=== PATIENT | female | born 2005 | race Caucasian/White ===

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

== ENCOUNTER 2024-01-03 02:58 | Emergency (ER) | payer OTHER, SELFPAY ==
[2024-01-03 02:59] VITALS: BP 122/78; PULSE 101; RESP 18; TEMP 36.8; O2SAT 97; BMI 33.1
--- NOTE | 2024-01-03 03:14 | PC.NURSE ---
pt from home, a&ox4, respirations even and unlabored. pt reports x2 weeks of nausea after eating, pt reports often times she eats and throws up almost immediately aftre. pt reports she has had a recent change in her meds and reports she is unsure if this is the cause. pt reports her last BM was 4 days ago and was hard. at this time pt also reporting SI, pt did not disclose plan at this time. pt reports she is in need of a new psychiatrist. 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
--- NOTE | 2024-01-03 03:17 | PC.NURSE ---
pt noted to have multiple facial piercings, pt unable to remove these. security and Charley chargemaster analyst aware.
--- NOTE | 2024-01-03 03:42 | PC.NURSE ---
belongings placed on shelf 2 in [facility].
[2024-01-03 03:48] LABS: Basophils Absolute Auto 0.1 X10*3/uL (0.0-0.2); Basophils Percent Auto 0.8 % (0-2); Hematocrit 38.3 % (37.0-47.0); Hemoglobin 12.9 g/dl (12.0-16.0); Imm Gran Abs Auto 0.03 X10*3/uL (0.00-0.03); Imm Gran Pct Auto 0.4 % (0.0-0.4); Lymphocytes Absolute Auto 1.5 X10*3/uL (1.2-4.9); Lymphocytes Percent Auto 19.1 % (20-40); MANUAL DIFF FLAG NO; Mean Corpuscular HGB Conc 33.7 g/dl (31.0-35.0); Mean Corpuscular Hemoglobin 26.6 pg (27.0-33.0); Mean Platelet Volume 10.2 fL (9.4-12.3); Monocytes Absolute Auto 0.4 X10*3/uL (0.1-1.2); Neutrophils Absolute Auto 5.7 x10*3/uL (2.0-8.3); Neutrophils Percent Auto 74.7 % (45-73); Platelet Count 238 X10*3/uL (160-400); Red Blood Count 4.85 X10*6/uL (4.20-5.50); White Blood Count 7.6 X10*3/uL (4.8-10.8)
[2024-01-03 03:49] LABS: Appearance Urine Turbid; Color Urine Dark Yellow; Glucose Urine UA Negative (Negative); Leukocyte Esterase Urine Moderate (2+) (Negative); Nitrite Urine Negative (Negative); Specific Gravity - Urine >= 1.030 (1.005-1.025); UMIC TRIGGER UACC YES; Urine Blood Negative (Negative); Urine Ketones Trace mg/dL (Negative); Urine Protein 30 (1+) mg/dL (Neg-Trace)
[2024-01-03 04:00] LABS: Bacteria Urine 4+ (None Seen); RBC Urine 0-2 /HPF (0-2); UACC Culture Trigger YES
[2024-01-03 04:03] LABS: Amphetamine Screen Urine Not Detected (Not Detect); Barbiturates, Urine Not Detected (Not Detect); Benzodiazepines Screen Urine Not Detected (Not Detect); Buprenorphine Scr Not Detected (Not Detect); Cannabinoid Screen Urine Not Detected (Not Detect); Cocaine Screen Urine Not Detected (Not Detect); Fentanyl, urine Not Detected (Not Detect); Methadone Screen, Urine Not Detected (Not Detect); Opiate Screen Urine Not Detected (Not Detect); Oxycodone Screen Urine Not Detected (Not Detect); Phencyclidine Screen Urine Not Detected (Not Detect)
[2024-01-03 04:09] LABS: Alanine Aminotransferase 20 U/L (0-31); Albumin Level 4.6 g/dL (3.5-5.0); Alkaline Phosphatase 137 U/L (39-117); Anion Gap 16 (12-20); Aspartate Amino Transferase 26 U/L (5-31); Bilirubin Total 0.4 mg/dL (0.0-1.0); Blood Urea Nitrogen 6 mg/dL (9-16); Calcium 9.9 mg/dL (8.4-10.2); Carbon Dioxide 20 mmol/L (22-29); Chloride 111 mmol/L (96-108); Creatinine Clr Calc Pharmacy 107.9; Estimated Glomerular Filt Rate > 60; Ethanol < 10 mg/dL; Glucose Random 108 mg/dL (60-115); Potassium 3.8 mmol/L (3.3-5.1); Sodium 143 mmol/L (135-145); Total Protein 7.4 g/dL (6.5-8.0)
--- NOTE | 2024-01-03 04:45 | ED_ITS ---
HPI - Psych General Chief Complaint: Abdominal Pain Stated Complaint: vomiting, constipated Time Seen by Provider: 01/03/24 04:24 Source: patient Mode of arrival: ambulatory Limitations: no limitations History of Present Illness ED Provider: aron CARR Narrative: Patient's history of anxiety depression feels suicidal used to take sertraline was restarted back but is not working feel nauseated increasingly depressed did not have any bowel movement for last 4 days patient also felt suicidal with thoughts of killing herself by cutting herself Related Data Home Medications ?Medication ?Instructions ?Recorded ?Confirmed albuterol sulfate 90 mcg/actuation 2 puff inhalation Q4-6H PRN 09/07/23 aerosol inhaler (Ventolin HFA) aripiprazole 5 mg tablet 5 mg PO DAILY 09/07/23 hydroxyzine HCl 25 mg tablet 25 mg PO TID 09/07/23 lamotrigine 25 mg tablet 25 mg PO DAILY 09/07/23 medroxyprogesterone 150 mg/mL 150 mg IM [id number] 09/07/23 intramuscular suspension melatonin 3 mg tablet mg PO 09/07/23 olanzapine 2.5 mg tablet 2.5 mg PO BEDTIME 09/07/23 omeprazole 20 mg capsule,delayed 20 mg PO BID 09/07/23 release sertraline 50 mg tablet 50 mg PO DAILY 09/07/23 trazodone 100 mg tablet 100 mg PO BEDTIME 09/07/23 Allergies Allergy/AdvReac Type Severity Reaction Status Date / Time No Known Allergies Allergy Verified 01/03/24 03:00 [No Known Allergies*] Review of Systems 2 Review of Systems: Yes all other systems are reviewed and are negative PMFSH Social History Social History Patient Tobacco Use Status: Never used Tobacco Smoked in Last 30 Days: No Use of substances other than those prescribed or required for medical reasons: No Advance Directives: No Advance Directives Information Provided: No Do you have a plan to hurt others: No Plan Patient : No Physical Exam 2 Vital Signs: Vital Signs: Last Vital Signs Temp 98.3 F 01/03/24 02:59 Pulse 101 H 01/03/24 02:59 Resp 18 01/03/24 02:59 BP 122/78 01/03/24 02:59 Pulse Ox 97 01/03/24 02:59 O2 Del Method Room Air 10/22/24 02:59 BMI result Body Mass Index 33.1 Appearance: Alert. Oriented X3. No acute distress. Eyes: No pallor/icterus ENT: Pharynx normal. Oral Mucosa moist Neck: Normal inspection. Neck supple. CVS: Normal heart rate and rhythm. Pulses normal. Respiratory: No respiratory distress. Equal air entry bilateral, no wheezing/rales/rhonchi Abdomen: Soft and nontender. Bowel sounds are present, no mass palpable, no CVA tenderness Skin: Skin warm and dry. Normal skin color. Normal skin turgor. Extremities: No lower extremity edema. No calf tenderness psych: Feel depressed SI thoughts no HI no hallucination or delusion Neuro: Oriented X 3. No motor deficit. No sensory deficit.No cerebellar signs , cranial nerves II-XII intact Medications Administered Discontinued Medications Generic Name Dose Route Start Last Admin Trade Name Freq PRN Reason Stop Dose Admin Magnesium Hydroxide 30 ml 01/03/24 04:43 01/03/24 05:20 Milk Of Magnesia 30 Ml Oral.Susp PO 01/03/24 04:44 30 ml NOW STA Administration Medical Decision Making Medical Decision Making [facility] Narrative: Patient with increased depression with history of SI in the past by cutting herself comes here with increased depression with feeling of cutting herself. Will consult care team medically cleared Lab Data [facility] Lab Attestation statement: I reviewed the patient's lab results. 01/03/24 03:42 01/03/24 03:42 Labs: Lab Results 01/03/24 Range/Units 03:42 WBC 7.6 (4.8-10.8) X10*3/uL RBC 4.85 (4.20-5.50) X10*6/uL Hgb 12.9 (12.0-16.0) g/dl Hct 38.3 (37.0-47.0) % MCV 79.0 L (80.0-98.0) fL MCH 26.6 L (27.0-33.0) pg MCHC 33.7 (31.0-35.0) g/dl RDW 15.0 (11.0-16.0) % Plt Count 238 (160-400) X10*3/uL MPV 10.2 (9.4-12.3) fL Immature Gran % (Auto) 0.4 (0.0-0.4) % Neut % (Auto) 74.7 H (45-73) % Lymph % (Auto) 19.1 L (20-40) % [place] % (Auto) 5.0 (2-11) % Eos % (Auto) 0.0 (0-4) % Baso % (Auto) 0.8 (0-2) % Lymph # (Auto) 1.5 (1.2-4.9) X10*3/uL [place] # (Auto) 0.4 (0.1-1.2) X10*3/uL Eos # (Auto) 0.0 (0.0-0.4) X10*3/uL Baso # (Auto) 0.1 (0.0-0.2) X10*3/uL Abs Immat Gran (auto) 0.03 (0.00-0.03) X10*3/uL Absolute Neuts (auto) 5.7 (2.0-8.3) x10*3/uL Absolute Nucleated RBC 0.000 (0.0-0.012) X10*3/uL Nucleated RBC % (auto) 0.0 (0.0-0.2) /100WBC Sodium 143 (135-145) mmol/L Potassium 3.8 (3.3-5.1) mmol/L Chloride 111 H (96-108) mmol/L Carbon Dioxide 20 L (22-29) mmol/L Anion Gap 16 (12-20) BUN 6 L (9-16) mg/dL Creatinine 0.80 (0.5-1.4) mg/dL Estim Creat Clear Calc 107.9 Estimated GFR > 60 Random Glucose 108 (60-115) mg/dL Calcium 9.9 D (8.4-10.2) mg/dL Total Bilirubin 0.4 (0.0-1.0) mg/dL AST 26 (5-31) U/L ALT 20 (0-31) U/L Alkaline Phosphatase 137 H (39-117) U/L Total Protein 7.4 (6.5-8.0) g/dL Albumin 4.6 (3.5-5.0) g/dL Urine Color Dark Yellow Urine Appearance Turbid Urine pH 6.0 (5.0-9.0) Ur Specific [place] >= 1.030 H (1.005-1.025) Urine Protein 30 (1+) H (Neg-Trace) mg/dL Urine Glucose (UA) Negative (Negative) mg/dL Urine Ketones Trace (Negative) mg/dL Urine Blood Negative (Negative) Urine Nitrite Negative (Negative) Ur Leukocyte Esterase Moderate (2+) H (Negative) Urine RBC 0-2 (0-2) /HPF Urine WBC 11-20 (0-5) /HPF Ur Squamous Epith Cells 11-20 (0-2) /HPF Urine Bacteria 4+ (None Seen) Hyaline Casts 3-5 (0-2) /LPF Urine Opiates Screen Not Detected (Not Detect) Ur Buprenorphine Scrn Not Detected (Not Detect) ng/mL Ur Oxycodone Screen Not Detected (Not Detect) ng/mL Urine Methadone Screen Not Detected (Not Detect) ng/mL Urine Fentanyl Screen Not Detected (Not Detect) Ur Barbiturates Screen Not Detected (Not Detect) Ur Phencyclidine Scrn Not Detected (Not Detect) Ur Amphetamines Screen Not Detected (Not Detect) U Benzodiazepines Scrn Not Detected (Not Detect) Urine Cocaine Screen Not Detected (Not Detect) U Marijuana (THC) Screen Not Detected (Not Detect) Ethyl Alcohol < 10 mg/dL Discharge Plan Discharge Clinical Impression: Major depression, Feeling suicidal Patient Disposition: Still a Patient Prescriptions: No Action trazodone 100 mg tablet 100 mg PO BEDTIME hydroxyzine HCl 25 mg tablet 25 mg PO TID sertraline 50 mg tablet 50 mg PO DAILY lamotrigine 25 mg tablet 25 mg PO DAILY melatonin 3 mg tablet PO medroxyprogesterone 150 mg/mL suspension 150 mg IM [id number] omeprazole 20 mg capsule,delayed release(DR/EC) 20 mg PO BID aripiprazole 5 mg tablet 5 mg PO DAILY albuterol sulfate [Ventolin HFA] 90 mcg/actuation HFA aerosol inhaler 2 puff inhalation Q4-6H PRN olanzapine 2.5 mg tablet 2.5 mg PO BEDTIME Print Language: Kinyarwanda
[2024-01-03] MEDS: Milk of Magnesia 30 ML ORAL.SUSP PO (05:20)
--- NOTE | 2024-01-03 05:26 | PC.NURSE ---
pt medicated per mar, tolerated well. 1:1 sitter continues at bedside.
[2024-01-03 06:17] VITALS: BP 108/61; PULSE 86; RESP 16; TEMP 37; O2SAT 98
[2024-01-03 07:53] VITALS: BP 114/69; PULSE 80; RESP 15; TEMP 36.4; O2SAT 96
[2024-01-03] MEDS: Sennosides 8.6 MG TABLET 17.2 MG PO (09:49)
[2024-01-03] MEDS: polyethylene glycoL 3350 17 GM POWD.PACK PO (09:49)
[2024-01-03] MEDS: Ondansetron ODT 4 MG TAB.RAPDIS TRANSLINGU (09:49)
--- NOTE | 2024-01-03 09:49 | MHC.CARE ---
Pt does not meet the criteria for IPLOC and will be referred to [facility] for OP providers.
--- NOTE | 2024-01-03 10:25 | MHC.CARE ---
[facility] referral completed.
[2024-01-03 10:31] VITALS: BP 114/69; PULSE 80; RESP 15; TEMP 36.4; O2SAT 96
== END 2024-01-03 10:33 | disposition home or self-care (01) ==
PROVIDERS: Emergency Provider Internal Medicine
DX: F33.1 Major depressive disorder, recurrent, moderate (principal); R45.851 Suicidal ideations; R11.2 Nausea with vomiting, unspecified; K59.00 Constipation, unspecified; Z51.81 Encounter for therapeutic drug level monitoring; Z79.899 Other long term (current) drug therapy
CPT/HCPCS: 36415; 80053; 80307; 81001; 85025; 87086; 99285; S9485

== ENCOUNTER 2024-06-24 14:10 | Emergency (ER) | payer OTHER, SELFPAY ==
--- NOTE | 2024-06-24 14:12 | ED.GENADULT ---
HPI - General Adult General Chief complaint: Nausea/Vomiting/Diarrhea Stated complaint: nausea Time Seen by Provider: 06/24/24 16:35 Source: patient Limitations: no limitations History of Present Illness ED Provider: Nicol Byrd PA-C HPI narrative: 18-year-old female with a history of anxiety presents with nausea vomiting times 3 days. Patient states she abruptly ran out of her hydroxyzine, she typically takes 75 mg before bed, she has been on this medication for years. Patient denies that she has been taking additional medication, she states she filled her prescription as she typically does, this prescription was short. Denies abdominal pain, diarrhea, fever, sick contacts with similar symptoms. Related Data Home Medications ?Medication ?Instructions ?Recorded ?Confirmed albuterol sulfate 90 mcg/actuation 2 puff inhalation Q4-6H PRN 09/07/23 aerosol inhaler (Ventolin HFA) aripiprazole 5 mg tablet 5 mg PO DAILY 09/07/23 hydroxyzine HCl 25 mg tablet 25 mg PO TID 09/07/23 lamotrigine 25 mg tablet 25 mg PO DAILY 09/07/23 medroxyprogesterone 150 mg/mL 150 mg IM [id number] 09/07/23 intramuscular suspension melatonin 3 mg tablet mg PO 09/07/23 olanzapine 2.5 mg tablet 2.5 mg PO BEDTIME 09/07/23 omeprazole 20 mg capsule,delayed 20 mg PO BID 09/07/23 release sertraline 50 mg tablet 50 mg PO DAILY 09/07/23 trazodone 100 mg tablet 100 mg PO BEDTIME 09/07/23 Previous Rx's ?Medication ?Instructions ?Recorded lactulose 10 gram oral packet 20 g PO BID PRN constipation #15 ea 01/03/24 ondansetron 4 mg disintegrating 4 mg PO Q8H PRN nausea and 01/03/24 tablet vomiting #10 tabs Allergies Allergy/AdvReac Type Severity Reaction Status Date / Time No Known Allergies Allergy Verified 06/24/24 14:15 [No Known Allergies*] Review of Systems Review of Systems: Yes all other systems are reviewed and are negative Constitutional: Constitutional: Denies fatigue and Denies fever(s) Cardiovascular: Cardiovascular: Denies chest pain and Denies dyspnea Respiratory: Respiratory: Denies cough and Denies dyspnea Gastrointestinal: Gastrointestinal: Denies abdominal pain, Denies diarrhea, Reports nausea and Reports vomiting Psychiatric: Psychiatric: Reports anxiety Endocrine: Endocrine: Denies fatigue [facility] Past Medical History Attestation statement: The following information was validated with the patient. Social History Social History Patient Tobacco Use Status: Never used Tobacco Advance Directives: No Advance Directives Information Provided: Yes Physical Exam ED Vital Signs: Vital Signs - 24 hr 06/24/24 14:14 06/24/24 16:43 06/24/24 18:06 Temperature 97.4 F 98.3 F 97.0 F Pulse Rate 112 H 96 89 Respiratory Rate 18 18 16 Blood Pressure 146/91 H 123/85 135/82 Pulse Oximetry 95 98 99 Oxygen Delivery Method Room Air Room Air Room Air 06/24/24 20:31 06/24/24 22:11 Temperature 97.0 F 96.9 F Pulse Rate 103 H 104 H Respiratory Rate 20 18 Blood Pressure 122/82 124/83 Pulse Oximetry 100 97 Oxygen Delivery Method Room Air Room Air BMI result Body Mass Index 24.2 Const Other: Alert Orientation/consciousness: patient oriented x3 HENMT Other: Dry oral mucosa, dry cracked lips Resp Effort & Inspection: normal respiratory effort Cardio Other: Normal peripheral perfusion GI Other: Soft, nondistended nontender no guarding Skin Other: Warm dry no rash Neuro General: patient oriented x3, gait normal, no focal motor deficits and CN's II-XI intact bilaterally Psych Other: Cooperative Course Course Course Narrative: This is a rapid medical exam performed by Rosa Arias NP: Additional HPI, ROS, PE not included below will be deferred to primary provider. 06/24/24 14:14 Patient is a 18-year-old female presenting to the ED with complaint of nausea and vomiting since Tuesday after she ran out of her hydroxyzine. Ambulates with cane at baseline due to leg swelling, has appt with cardiology tomorrow regarding this but unsure if she will be able to go due to symptoms. Plan: labs, viral panel Reevaluation(s) Reevaluation #1: Patient unwilling to try p.o. challenge, she states she is still profoundly nauseous, the Ativan was not helpful. We will try Compazine and Benadryl. Reevaluation #2: P.o. challenge the patient, she subsequently vomited, Time: 20:04 Reevaluation #3: I placed a care team consult. I did verify with [facility] of the patient filled her last prescription for hydroxyzine on June 05, she is supposed to be taking the medication 25 mg t.i.d., not 75 mg q.h.s.. She received a 30 day supply at that time, she should have week's worth of medication at home. She is not suicidal she is not homicidal, the care team felt there was no recent Holter, I am in agreement. I have relayed to the patient that she needs to speak with her psychiatrist about further medication refills for her hydroxyzine. Medications Administered Discontinued Medications Generic Name Dose Route Start Last Admin Trade Name Rikq PRN Reason Stop Dose Admin Diphenhydramine HCl 25 mg 06/24/24 19:04 06/24/24 19:13 Diphenhydramine Hcl 50 Mg/Ml Vial IVPUSH 06/24/24 19:05 25 mg ONCE ONE Administration Hydroxyzine HCl 75 mg 06/24/24 16:52 06/24/24 17:53 Hydroxyzine Hcl 25 Mg Tablet PO 06/24/24 16:53 Not Given ONCE ONE Lactated Ringer's 1,000 mls @ 999 mls/hr 06/24/24 16:45 06/24/24 18:57 Lr IV 06/24/24 17:45 Infused .Q1H1M DULCE Infusion Lactated Ringer's 1,000 mls @ 999 mls/hr 06/24/24 19:45 06/24/24 20:06 Lr IV 06/24/24 20:45 999 mls/hr .Q1H1M DULCE Administration Lorazepam 1 mg 06/24/24 18:13 06/24/24 18:21 Lorazepam 2 Mg/Ml Vial IVPUSH 06/24/24 18:14 1 mg ONCE ONE Administration Lorazepam 1 mg 06/24/24 20:42 06/24/24 21:48 Lorazepam 2 Mg/Ml Vial IVPUSH 06/24/24 20:43 1 mg ONCE ONE Administration Prochlorperazine Edisylate 10 mg 06/24/24 19:04 06/24/24 19:14 Prochlorperazine Edisylate 10 Mg/2 Ml Vial IVPUSH 06/24/24 19:05 10 mg ONCE ONE Administration Medical Decision Making Medical Decision Making [facility] Narrative: 18-year-old female with a history of anxiety presents with nausea vomiting times 3 days. Patient states she abruptly ran out of her hydroxyzine, she typically takes 75 mg before bed, she has been on this medication for years. Patient denies that she has been taking additional medication, she states she filled her prescription as she typically does, this prescription was short. Denies abdominal pain, diarrhea, fever, sick contacts with similar symptoms. Problem: Anxiety History: Per patient I have considered the following differential diagnoses: Hydroxyzine withdrawal, viral gastroenteritis, acute intra-abdominal pathology Plan: Screening labs were obtained from triage, she is subtly acidotic from the vomiting. We will give LR, and her scheduled dose of hydroxyzine. Likely not viral gastroenteritis, she has no diarrhea, she has no sick contacts with similar symptoms. The patient's abdominal exam is benign, she has no complaint of abdominal pain, imaging not warranted. I have independently reviewed the following tests: Labs: No leukocytosis, not anemic, bicarb low at 16, gap of 23, no additional electrolyte abnormalities, Lab Data 06/24/24 14:43 06/24/24 14:43 Labs: Lab Results 06/24/24 Range/Units 14:43 WBC 8.2 (4.8-10.8) X10*3/uL RBC 4.88 (4.20-5.50) X10*6/uL Hgb 14.7 (12.0-16.0) g/dl Hct 42.2 (37.0-47.0) % MCV 86.5 (80.0-98.0) fL MCH 30.1 (27.0-33.0) pg MCHC 34.8 (31.0-35.0) g/dl RDW 13.4 (11.0-16.0) % Plt Count 309 D (160-400) X10*3/uL MPV 9.6 (9.4-12.3) fL Immature Gran % (Auto) 0.2 (0.0-0.4) % Neut % (Auto) 69.3 (45-73) % Lymph % (Auto) 24.2 (20-40) % [place] % (Auto) 5.6 (2-11) % Eos % (Auto) 0.0 (0-4) % Baso % (Auto) 0.7 (0-2) % Lymph # (Auto) 2.0 (1.2-4.9) X10*3/uL [place] # (Auto) 0.5 (0.1-1.2) X10*3/uL Eos # (Auto) 0.0 (0.0-0.4) X10*3/uL Baso # (Auto) 0.1 (0.0-0.2) X10*3/uL Abs Immat Gran (auto) 0.02 (0.00-0.03) X10*3/uL Absolute Neuts (auto) 5.7 (2.0-8.3) x10*3/uL Absolute Nucleated RBC 0.000 (0.0-0.012) X10*3/uL Nucleated RBC % (auto) 0.0 (0.0-0.2) /100WBC Sodium 137 (135-145) mmol/L Potassium 4.1 (3.3-5.1) mmol/L Chloride 102 (96-108) mmol/L Carbon Dioxide 16 L (22-29) mmol/L Anion Gap 23 H (12-20) BUN 8 L (9-16) mg/dL Creatinine 0.86 (0.5-1.4) mg/dL Estim Creat Clear Calc 86.1 Estimated GFR > 60 Random Glucose 67 (60-115) mg/dL Calcium 9.8 (8.4-10.2) mg/dL Total Bilirubin 0.5 (0.0-1.0) mg/dL AST 22 (5-31) U/L ALT 12 (0-31) U/L Alkaline Phosphatase 128 H (39-117) U/L Total Protein 7.7 (6.5-8.0) g/dL Albumin 4.5 (3.5-5.0) g/dL Beta HCG, Quant < 2 mIU/mL Urine Color Yellow Urine Appearance Cloudy Urine pH 5.5 (5.0-9.0) Ur Specific [place] >= 1.030 H (1.005-1.025) Urine Protein 30 (1+) H (Neg-Trace) mg/dL Urine Glucose (UA) Negative (Negative) mg/dL Urine Ketones >=160 (Negative) mg/dL Urine Blood Negative (Negative) Urine Nitrite Negative (Negative) Ur Leukocyte Esterase Negative (Negative) Urine RBC 0-2 (0-2) /HPF Urine WBC 0-5 (0-5) /HPF Ur Squamous Epith Cells 11-20 (0-2) /HPF Urine Bacteria 2+ (None Seen) Hyaline Casts 0-2 (0-2) /LPF Influenza Type A (PCR) NEGATIVE (Negative) Influenza Type B (PCR) NEGATIVE (Negative) RSV RNA Qual (PCR) NEGATIVE (Negative) SARS-CoV-2 RNA (RT-PCR) NEGATIVE (Negative) Discharge Plan Discharge Clinical Impression: Intractable vomiting Patient Disposition: Home, Self-Care Additional Instructions: You need to follow up with your psychiatrist up discussion about further prescriptions for hydroxyzine. I called your pharmacy to verify the timing of your last refill and the quantity, you should have 2 weeks' worth of hydroxyzine at home. Call tomorrow to make an appointment. Prescriptions: No Action ondansetron 4 mg tablet,disintegrating 4 mg PO Q8H PRN (Reason: nausea and vomiting) Qty: 10 0RF lactulose 10 gram packet 20 g PO BID PRN (Reason: constipation) Qty: 15 0RF trazodone 100 mg tablet 100 mg PO BEDTIME hydroxyzine HCl 25 mg tablet 25 mg PO TID sertraline 50 mg tablet 50 mg PO DAILY lamotrigine 25 mg tablet 25 mg PO DAILY melatonin 3 mg tablet PO medroxyprogesterone 150 mg/mL suspension 150 mg IM [id number] omeprazole 20 mg capsule,delayed release(DR/EC) 20 mg PO BID aripiprazole 5 mg tablet 5 mg PO DAILY albuterol sulfate [Ventolin HFA] 90 mcg/actuation HFA aerosol inhaler 2 puff inhalation Q4-6H PRN olanzapine 2.5 mg tablet 2.5 mg PO BEDTIME Stand Alone Forms: Work/School Release Print Language: Kiswahili
[2024-06-24 14:14] VITALS: BP 146/91; PULSE 112; RESP 18; TEMP 36.3; O2SAT 95; BMI 24.2
[2024-06-24 14:51] LABS: MANUAL DIFF FLAG NO
[2024-06-24 14:54] LABS: Basophils Absolute Auto 0.1 X10*3/uL (0.0-0.2); Basophils Percent Auto 0.7 % (0-2); Hematocrit 42.2 % (37.0-47.0); Hemoglobin 14.7 g/dl (12.0-16.0); Imm Gran Abs Auto 0.02 X10*3/uL (0.00-0.03); Imm Gran Pct Auto 0.2 % (0.0-0.4); Lymphocytes Percent Auto 24.2 % (20-40); Mean Corpuscular HGB Conc 34.8 g/dl (31.0-35.0); Mean Corpuscular Hemoglobin 30.1 pg (27.0-33.0); Mean Corpuscular Volume 86.5 fL (80.0-98.0); Mean Platelet Volume 9.6 fL (9.4-12.3); Monocytes Absolute Auto 0.5 X10*3/uL (0.1-1.2); Monocytes Percent Auto 5.6 % (2-11); Neutrophils Absolute Auto 5.7 x10*3/uL (2.0-8.3); Neutrophils Percent Auto 69.3 % (45-73); Platelet Count 309 X10*3/uL (160-400); Red Blood Count 4.88 X10*6/uL (4.20-5.50); Red Cell Distribution Width 13.4 % (11.0-16.0); White Blood Count 8.2 X10*3/uL (4.8-10.8)
[2024-06-24 14:55] LABS: Appearance Urine Cloudy; Color Urine Yellow; Glucose Urine UA Negative (Negative); Leukocyte Esterase Urine Negative (Negative); Nitrite Urine Negative (Negative); PH 5.5 (5.0-9.0); Specific Gravity - Urine >= 1.030 (1.005-1.025); UMIC TRIGGER UACC YES; Urine Blood Negative (Negative); Urine Ketones >=160 mg/dL (Negative); Urine Protein 30 (1+) mg/dL (Neg-Trace)
[2024-06-24 15:13] LABS: Bacteria Urine 2+ (None Seen); Hyaline Casts Urine 0-2 /LPF (0-2); RBC Urine 0-2 /HPF (0-2); WBC Urine 0-5 /HPF (0-5)
[2024-06-24 15:33] LABS: Influenza A PCR NEGATIVE (Negative); Influenza B PCR NEGATIVE (Negative); Resp Syncy Virus RNA Qual PCR NEGATIVE (Negative); SARS COV2 PCR INHOUSE NEGATIVE (Negative)
[2024-06-24 15:39] LABS: Alanine Aminotransferase 12 U/L (0-31); Albumin Level 4.5 g/dL (3.5-5.0); Alkaline Phosphatase 128 U/L (39-117); Anion Gap 23 (12-20); Aspartate Amino Transferase 22 U/L (5-31); Bilirubin Total 0.5 mg/dL (0.0-1.0); Blood Urea Nitrogen 8 mg/dL (9-16); Calcium 9.8 mg/dL (8.4-10.2); Carbon Dioxide 16 mmol/L (22-29); Chloride 102 mmol/L (96-108); Creatinine Clr Calc Pharmacy 86.1; Estimated Glomerular Filt Rate > 60; Glucose Random 67 mg/dL (60-115); HCG Quantitative < 2 mIU/mL; Potassium 4.1 mmol/L (3.3-5.1); Sodium 137 mmol/L (135-145); Total Protein 7.7 g/dL (6.5-8.0)
--- OUTSIDE RECORDS SUMMARY | 2024-06-24 16:31 | XMS_ITS | Encounter Summary ---
Author Organization [facility] Address [address] [place] [address] Care Team Providers Care Child Health Associate Name Role Phone Community, Pcp Primary Care Provider Unavailabl e Encounter Details Date Type Department Care Team Description 10/11/2017 Release of Information Medical Records [address] [place] [address] Abstract, Provider Social History Tobacco Use Types Packs/Day Years Used Date Smoking Tobacco: Passive Smo ke Exposure - Never Smoker Comments:dad and mom are smo kers Alcohol Use Standard Drinks/Week Comments Not Asked 0 (1 standard drink = 0.6 oz pur e alcohol) Sex Assigned at Date Recorded Not on file documented as of this encounter Plan of Treatment Not on file documented as of this encounter Visit Diagnoses Not on filedocumented in this encounter Care Teams Child Health Associate Relationship Specialty Start Date End Date Community, Pcp PCP - General Internal Medicine 10/07/17 documented as of this encounter
--- OUTSIDE RECORDS SUMMARY | 2024-06-24 16:31 | XMS_ITS | Clinical Summary ---
Author Organization [facility] Address [address] [place] [address] Care Team Providers Care Clean Up Worker Name Role Phone Community, Pcp Primary Care Provider Unavailabl e Allergies Active Allergy Reactions Severity Noted Date Comments Seasonal Allergies 07/04/2014 Medications Medication Sig Dispensed Refills Start Date End Date Status Pediatric Multiple Vit-C-FA ( CHILDREN MULTI VITAMINS) Chew Tab Take 1 Tab by mouth daily. 60 Tab 1 03/20/2014 Active Cetirizine HCl (ZYRTEC OR) Take by mouth. 0 Active ALBUTEROL SULFATE 108 (90 BASE) MCG/ACT Aero Soln Inhale 2 Puffs into the lungs every 4 hours as needed for Cough or Wheezing. One for home, one for school 2 Inhaler 3 12/19/2015 Active Lactobacillus Rhamnosus, GG, (CULTUREDIANNEE KIDS) Chew Tab Take 1 Tab by mouth daily. 30 Tab 6 03/23/2016 Active beclomethasone (QVAR) 80 MCG/ACT inhaler Inhale 2 Puffs into the lungs 2 times daily. 120 Act 12 09/07/2016 Active montelukast (SINGULAIR) 5 MG chewable tablet Take 1 Tab by mouth at bedtime. 30 Tab 3 09/07/2016 Active sodium fluoride (LURIDE) 2.2 (1 F) MG per chewable tablet TAKE 1 TABLET BY MOUTH DAILY. 90 Tab 3 10/28/2016 Active FLOVENT HFA 110 MCG/ACT inhaler INHALE 2 PUFFS INTO THE LUNGS 2 TIMES DAILY. 1 Inhaler 11 12/22/2016 Active sodium fluoride (LURIDE) 2.2 (1 F) MG per chewable tablet CHEW 1 TABLET BY MOUTH DAILY. 30 Tab 1 10/06/2017 Active Active Problems Problem Noted Date Weight loss 03/24/2016 Seasonal allergies 09/05/2015 Asthma 02/27/2014 Overview: Flovent increased to 110, 2 puffs daily 02/27/14 Resolved Problems Problem Noted Date Resolved Date Anxiety 02/27/2014 09/05/2015 Overview: Sees counselor at school Immunizations Name Administration Dates Next Due DTaP 12/27/2008,05/05/2006 HIB 05/05/2006, 5,2004, 005 Hepatitis B-3 Dose (<19yrs) 2004 Influenza (6-35 months) 12/27/2008,01/12,01/20/2006, 005 Influenza (> 6 Months) 12/31/2013,02/20/2013 Influenza H1N1 Pandemic Flu Vaccine 12/27/2008 MMR (Zflsagp-Gylbk-Vksjtzx) 12/27/2008, 6 Meningococcal (Menactra) 09/05/2015 PEDIARIX(DTAP-HEP B-IPV) 03/03/2005,2004,0 2004 Pneumococcal(Pedi) Conjugate PCV-7 05/05,03/03/2005,2004, 005 Polio (IPV) 12/27/2008 Tdap 09/05/2015 Varicella 12/27/2008,09/16/2005 Family History Medical History Relation Name Comments Hypertension Maternal Grandfather Allergies Maternal Grandmother Cholesterol Level Mother Relation Name Status Comments Father Alive Wilfredo Conteh Maternal Grandfather Maternal Grandmother Mother Alive Aviva Winston Social History Tobacco Use Types Packs/Day Years Used Date Smoking Tobacco: Passive Smo ke Exposure - Never Smoker Comments:dad and mom are smo kers Alcohol Use Standard Drinks/Week Comments Not Asked 0 (1 standard drink = 0.6 oz pur e alcohol) Sex Assigned at Date Recorded Not on file Last Filed Vital Signs Vital Sign Reading Time Taken Comments Blood Pressure 116/60 09/07/2016 3:36 PM EDT Pulse 100 09/07/2016 3:36 PM EDT Temperature 37.6 ??C (99.7 ??F) 09/07/2016 3:36 PM ED T Respiratory Rate 20 03/23/2016 3:32 PM EST Oxygen Saturation 99% 03/23/2016 3:32 PM EST Inhaled Oxygen Concentration - - Weight 24.9 kg (55 lb) 09/07/2016 3:36 PM EDT Height 140 cm (4' 7.12 ) 09/07/2016 3:36 PM EDT Body Mass Index 12.73 09/07/2016 3:36 PM EDT Body Mass Index Percentile 0.03 % 09/07/2016 3:3 6 PM EDT Growth Chart: CDC (Girls, 2- 20 Years) Plan of Treatment Health Maintenance Due Date Last Done Comments Covid-19 Vaccine (#1) 02/26/2005 HUMAN PAPILLOMAVIRUS (HPV) ( 1 - 2-dose series) 08/28/2015 GONORRHEA & CHLAMYDIA SCREENING 2020 TOBACCO CHECK/ADVISE 2022 BASELINE HEALTH EXAM 18-39 08/28/2023 09/07/2016, BMI CHECK/ADVISE 03/14/2024 09/07/2016, , 09/05/2015, Additional history exists INFLUENZA (Season Ended) 2024 014, 02/20/2013, 12/27/2008, Additional history exists DTAP/TDAP/TD (7 - Td or Tdap) 09/04/2025, 12/27/2008, 05/05/2006, Additional history exists PNEUMOCOCCAL VACCINE FOR HIG H RISK PATIENTS (#1) 2069 Care Teams Clean Up Worker Relationship Specialty Start Date End Date Community, Pcp PCP - General Internal Medicine 10/07/17
--- OUTSIDE RECORDS SUMMARY | 2024-06-24 16:31 | XMS_ITS | Encounter Summary ---
Author Organization [facility] Address [address] [place] [address] Care Team Providers Care Nuclear Process Engineer Name Role Phone Wanda Latham MD Primary Care Provider Unavailab missy [facility], Pcp [facility] Encounter Details Date Type Department Care Team Description 02/20/2014 Business Doc Medical Records [address] [place] [id number] Abstract, Provider Social History Tobacco Use Types [...] on filedocumented in this encounter Care Teams Nuclear Process Engineer Relationship Specialty Start Date End Date Wanda Latham MD PCP - General Pediatrics 02/18/14 10/06/17 [facility], Pcp PCP - General Internal Medicine 10/07/17 documented as of this encounter
[2024-06-24 16:43] VITALS: BP 123/85; PULSE 96; RESP 18; TEMP 36.8; O2SAT 98
[2024-06-24] MEDS: Lactated Ringers 1,000 ML 999 ML IV ×2 (17:56→20:06)
[2024-06-24 18:06] VITALS: BP 135/82; PULSE 89; RESP 16; TEMP 36.1; O2SAT 99
[2024-06-24] MEDS: LORazepam 2 MG/ML VIAL 1 MG IVPUSH ×2 (18:21→21:48)
[2024-06-24] MEDS: diphenhydrAMINE HCL 50 MG/ML VIAL 25 MG IVPUSH (19:13)
[2024-06-24] MEDS: Prochlorperazine Edisylate 10 MG/2 ML VIAL IVPUSH (19:14)
[2024-06-24 20:31] VITALS: BP 122/82; PULSE 103; RESP 20; TEMP 36.1; O2SAT 100
[2024-06-24 22:11] VITALS: BP 124/83; PULSE 104; RESP 18; TEMP 36.1; O2SAT 97
[2024-06-24 23:03] VITALS: BP 124/83; PULSE 104; RESP 18; TEMP 36.1; O2SAT 97
== END 2024-06-24 23:23 | disposition home or self-care (01) ==
PROVIDERS: Registered Nurse Emergency; Emergency Provider Emergency Medicine; PCP Internal Medicine
DX: R11.2 Nausea with vomiting, unspecified (principal); Z03.818 Encounter for observation for suspected exposure to other biological agents ruled out; Z79.899 Other long term (current) drug therapy
CPT/HCPCS: 0241U; 80053; 81001; 84702; 85025; 96361; 96374; 96375; 96376; 99284; J0737; J1200; J2060; J7120; S9485

== ENCOUNTER 2024-06-25 13:38 | Outpatient (REF) | payer OTHER, SELFPAY ==
[2024-06-25 16:06] LABS: B Type Natriuretic Peptide 11 pg/mL (<100)
--- OUTSIDE RECORDS SUMMARY | 2024-06-25 17:10 | XMS_ITS | Encounter Summary ---
Author Organization [facility] Address [address] [place] [address] Care Team Providers Care Potato Peeling Machine Operator Name Role Phone Community, Pcp Primary Care Provider Unavailabl e Encounter Details Date Type Department Care Team Description 10/11/2017 Release of Information Medical Records [address] [place] [address] Abstract, Provider Social History Tobacco Use Types [...] on filedocumented in this encounter Care Teams Potato Peeling Machine Operator Relationship Specialty Start Date End Date Community, Pcp PCP - General Internal Medicine 10/07/17 documented as of this encounter
--- OUTSIDE RECORDS SUMMARY | 2024-06-25 17:10 | XMS_ITS | Clinical Summary ---
Author Organization [facility] Address [address] [place] [address] Care Team Providers Care Legislative Assistant Name Role Phone Community, Pcp Primary [...] Influenza H1N1 Pandemic Flu Vaccine 12/27/2008 MMR (Zyjjxmg-Scvny-Bhuqhpt) 12/27/2008, 6 Meningococcal (Menactra) 09/05/2015 PEDIARIX(DTAP-HEP B-IPV) [...] H RISK PATIENTS (#1) 2069 Care Teams Legislative Assistant Relationship Specialty Start Date End Date Community, Pcp PCP - General Internal Medicine 10/07/17
--- OUTSIDE RECORDS SUMMARY | 2024-06-25 17:10 | XMS_ITS | Encounter Summary ---
Author Organization [facility] Address [address] [place] [address] Care Team Providers Care Day Haul Or Farm Charter Bus Driver Name Role Phone Wanda Latham MD Primary Care Provider Unavailab [facility], Pcp Primary Care Provider Unavailabl e Reason for Visit * Reason Comments E-prescribe Rx Request Encounter Details Date Type Department Care Team Description 06/16/2015 Refill Pediatrics - [address] [address] Wanda Latham MD E-prescribe Rx Request Social [...] of the day? YES Wanda Latham Payor: Coverity / Plan: Coverity $0 CHELLE [id number] / Product Type: MEDICAID [id number] documented in this encounter Plan of Treatment Not on file documented as of this encounter Visit Diagnoses Not on filedocumented in this encounter Care Teams Day Ha[employer] Charter Bus Driver Relationship Specialty Start Date End Date Wanda Latham MD PCP - General Pediatrics 02/18/14 10/06/17 [facility] PCP - General Internal Medicine 10/07/17 documented as of this encounter
--- OUTSIDE RECORDS SUMMARY | 2024-06-25 17:10 | XMS_ITS | Encounter Summary ---
Author Organization [facility] Address [address] [place] [address] Care Team Providers Care Air Pumper Name Role Phone YuriyleticiaShana NP Primary Care Provider [phone] Reason for Referral * Imaging (Routine) - Closed Specialty Diagnoses / Procedures Referred By Daniel schroeder Referred To Contact Radiology Procedures US Historical Reference Only Harjit Parrish MD [address] [place] [address] Phone: tel: fax: Referral ID Status Reason Start Date Expiration Date Visits Re quested Visits Authorized [id number] Closed 10/06/2023 04/06/2025 1 1 Encounter Details Date Type Department Care Team (Late st Contact Info) Description 10/06/2023 External Imaging [facility] [address] [place] [address] Yudelka Colby ARRT Social History Tobacco Use [...] on filedocumented in this encounter Care Teams Air Pumper Relationship Specialty Start Date End Date Shana Perry NP [address] [place] [address] PCP - General Nurse Practitioner 07/18/23 documented as of this encounter
--- OUTSIDE RECORDS SUMMARY | 2024-06-25 17:10 | XMS_ITS | Clinical Summary ---
Author Organization [facility] Address [address] [id number] Care Team Providers Care Triple Valve Mechanic Name Role Phone Shana Perry NP Primary Care Provider [phone] Allergies No known active allergies Medications cloNIDine [...] Will begin physical therapy and refer to [facility] for evaluation. Recheck in 2 weeks or sooner if needed. Discussed importance of healthy food choices and daily activity. Anxiety with depression 02/16/2022 Overview (10/05/2023): Last Assessment & Plan: Seeing psych. Was seen last month and has another visit in February. Juvenile idiopathic scoliosis of lumbar region 0 11/21/2017 Overview (10/05/2023): Scoliosis series films ordered. Pt will likely need referral to [facility] for further management. Last Assessment & Plan: Continue with follow up with [facility] for lower back scoliosis. Does not use [...] Plan of Treatment Not on file Insurance [facility] Care Teams Triple Valve Mechanic Relationship Specialty Start Date End Date Shana Perry NP [address] [place] [id number] PCP - General Nurse Practitioner 07/18/23
== END 2024-06-25 13:39 | disposition home or self-care (01) ==
LOC: HO.LAB 13:38
PROVIDERS: PCP Internal Medicine; Visit Provider Internal Medicine Cardiovascular Disease
DX: R60.0 Localized edema (principal); R00.1 Bradycardia, unspecified
CPT/HCPCS: 36415; 83880; 93005; 99202

== ENCOUNTER 2024-06-25 13:38 | Outpatient (AMB) | payer OTHER, SELFPAY ==
[2024-06-25 13:59] VITALS: BP 118/70; PULSE 109; BMI 23.7
--- NOTE | 2024-06-25 13:59 | MHC.OFFVIS ---
Vital Signs 06/25/24 13:59 Height 5 ft 1 in Weight 125 lb 10.616 oz BMI 23.7 BP 118/70 Blood Pressure Location Lt brachial Position Sitting Pulse 109 H Intake Visit Reasons: DIRECTOR NICU/R. Catjakis/Edema of brandt. lower ext. Intake Note: New patient dx bilateral leg edema Lead Nuclear Medicine Technologist Required: No Allergies No Known Allergies [No Known Allergies*] Allergy (Verified 06/24/24 14:15) Medication List - Last Reconciled 06/25/24 by Huey Marquez MD albuterol sulfate 90 mcg/actuation (Ventolin HFA) 2 puffs inhalation Q4-6H PRN aripiprazole 5 mg PO DAILY hydroxyzine HCl 25 mg PO TID lactulose 20 grams PO BID PRN lamotrigine 25 mg PO DAILY melatonin mg PO norelgestromin-ethin.estradiol 150-35 mcg/24 hr patches transdermal omeprazole 20 mg PO BID ondansetron 4 mg PO Q8H PRN sertraline 50 mg PO DAILY HPI Comments Details: Emma was referred here for evaluation bilateral leg edema. She is walking with help of a walker because of significant pain in the lower extremity. She says when she walks for long distances a statin for long period time she gets bilateral lower extremity swelling. She was very bothered by this as this causes her to have significant discomfort as well. She was history of spinal scoliosis and has been evaluated by his trainers and currently no therapy has been offered. Patient denies any significant symptoms of orthopnea, PND, abdominal distension. She was no lightheadedness, syncope. She denies any significant shortness of breath with exertion or chest pain. She was referred here for further evaluation for bilateral leg swelling. No prior congenital heart issues. No family history of cardiomyopathy or premature sudden cardiac that. [facility] Social History Patient Tobacco Use Status: Never used Tobacco Review of Systems Const Denies chills, Denies daytime sleepiness, Denies fatigue, Denies fever(s), Denies frequent falls, Denies poor appetite, Denies snoring, Denies stops breathing during sleep, Denies weakness, Denies weight gain and Denies weight loss Eyes Denies loss of vision ENT Denies dizziness and Denies hearing loss Card Denies chest pain, Denies claudication, Denies leg edema, Denies lightheadedness, Denies palpitations, Denies dyspnea, Denies dyspnea on exertion and Denies orthopnea Resp Denies cough, Denies excessive phlegm production, Denies dyspnea, Denies dyspnea on exertion, Denies snoring and Denies wheezing GI Denies abdominal pain, Denies hematochezia, Denies change in bowel habits, Denies nausea and Denies vomiting Denies urinary frequency and Denies dysuria Musc Denies arthralgias, Denies muscle weakness, Denies numbness and Denies other (frequent falls) Skin/Breast Denies nail changes and Denies rash Neuro Denies Abnormal speech present, Denies dizziness, Denies frequent falls, Denies loss of vision, Denies memory loss, Denies numbness and Denies weakness Psych Denies depression and Denies memory loss Endo Denies fatigue and Denies palpitations Kemal/Lymph Reports easy bruising and Reports other (anemia) Aller/Immun Denies wheezing Physical Exam Vital Signs: Last Vital Signs Pulse 109 H 06/25/24 13:59 BP 118/70 06/25/24 13:59 BMI result Body Mass Index 23.7 Const General: cooperative, comfortable, no acute distress, alert, awake and Physically active Nutritional Appearance: thin Orientation/consciousness: patient oriented x3 Limitations: ambulation with walker HEENT Head: Yes normocephalic and Yes atraumatic Neck Neck: Yes trachea midline, Yes supple and Yes no JVD Resp Effort & Inspection: normal respiratory effort Auscultation: clear to auscultation bilaterally Cardio Jugular venous distension: no JVD Rate: regular rate Rhythm: regular rhythm Heart sounds: S1 normal heart sound present, S2 normal heart sound present, no click, no gallops, no murmurs and no rubs GI Auscultation: normal bowel sounds Skin General skin exam: no rashes or lesions noted Neuro General: patient oriented x3 and no focal motor deficits Speech: No Abnormal speech present Extrem General: No clubbing, No cyanosis and No edema Psych Appearance: grossly normal Office Procedures EKG Details: EKG shows sinus tachycardia otherwise normal EKG [id number], Complete Assessment & Plan Assessment & Plan (1) Leg edema: Code(s): R60.0 - Localized edema Category: Medical Plan: Bilateral leg edema in the young woman without any obvious evidence of central venous congestion or hepatomegaly. I doubt this represents cardiac etiology of a bilateral leg edema. To me appears to be more related to venous insufficiency/dependent edema. She was no clear evidence of varicose veins. Central venous insufficiency is possibility. However she was not satisfied with the response. I suggested her to do a BNP to assess for any evidence of CHF and will also suggest an echocardiogram to evaluate for LV systolic and diastolic function to evaluate for valvular abnormality and right-sided pathology. This was discussed with her. She was satisfied with this. Meanwhile I have advised her to continue to participate in physical exercise and improve her muscle tone and function of the lower extremity as well as consider using thigh length compression venous stocking. As she persists with leg swelling and has no obvious cardiac etiology consider referral to vascular surgery for venous insufficiency evaluation. Will follow up in the clinic if need be. Thank you for allowing me to partake in his care Orders: Orders B Type Natriuretic Peptide 06/25/24 R60.0 - Localized edema CA echo transthoracic complete 06/25/24 R60.0 - Localized edema Coding Level of Care Code New Pt Level 4 (42318) Complex EM visit Add On G2211 Diagnoses Leg edema R60.0 CPT Codes EKG - CPT: 51036-[id number], Complete ([id number])
--- OUTSIDE RECORDS SUMMARY | 2024-06-25 15:41 | XMS_ITS | Clinical Summary ---
Author Organization [facility] Address [address] [place] [address] Care Team Providers Care Transition Assistant Name Role Phone Community, Pcp Primary Care [...] Influenza H1N1 Pandemic Flu Vaccine 12/27/2008 MMR (Mquflvr-Blgbn-Opehmcu) 12/27/2008, 6 Meningococcal (Menactra) 09/05/2015 PEDIARIX(DTAP-HEP B-IPV) [...] H RISK PATIENTS (#1) 2069 Care Teams Transition Assistant Relationship Specialty Start Date End Date Community, Pcp PCP - General Internal Medicine 10/07/17
--- OUTSIDE RECORDS SUMMARY | 2024-06-25 15:41 | XMS_ITS | Clinical Summary ---
Author Organization [facility] Address [address] [id number] Care Team Providers Care Napkin Band Wrapper Name Role Phone Shana Perry NP Primary Care Provider [phone] Allergies No known active allergies Medications cloNIDine (Catapres) 0.1 mg tablet Take 0.1 mg by mouth if needed in the morning and at bedtime. 09/01/2022 Active hydrOXYzine HCL (Atarax) 25 mg tablet Take 25 mg by mouth if needed in the morning, at noon, and at bedtime. Active ibuprofen 400 mg tablet Take 400 mg by mouth. 06/07/2023 Active melatonin 3 mg tablet TAKE THREE (3) TABLETS BY MOUTH AT BEDTIME, NEEDED Active sertraline (Zoloft) 50 mg tablet 09/24/2023 Active lamoTRIgine (LaMICtal) 25 mg tablet Take 2 tablets by mouth in the morning. Active traZODone (Desyrel) 100 mg tablet 10/01/2023 Active Active Problems Problem Noted Date Diagnosed Date Bilateral leg pain 09/08/2023 Overview (10/05/2023): Last Assessment & Plan: Hx of bilateral leg pain accompanied by occasional leg pain - not noted on exam today but noted on previous exams by other providers. Complex history. Significant weight gain in the past year. Recently started and then stopped abilify. On depo, with concerns that depo caused the weight gain. Reassuring there is no chest pain or SOB. No circulation concerns. Good sensation, not cool to touch. Case discussed with Dr. Lopez. Will begin physical therapy and refer to [facility] for evaluation. Recheck in 2 weeks or sooner if needed. Discussed importance of healthy food choices and daily activity. Anxiety with depression 02/16/2022 Overview (10/05/2023): Last Assessment & Plan: Seeing psych. Was seen last month and has another visit in February. Juvenile idiopathic scoliosis of lumbar region 0 11/21/2017 Overview (10/05/2023): Scoliosis series films ordered. Pt will likely need referral to [facility] for further management. Last Assessment & Plan: Continue with follow up with [facility] for lower back scoliosis. Does not use a brace. Asthma 03/13/2009 Overview (10/05/2023): Flovent increased to 110, 2 puffs daily 02/27/14 Flovent increased to 110, 2 puffs daily 02/27/14 Last Assessment & Plan: No current issues. Continue with albuterol as needed. No controller medication currently. Triggers reported as allergies typically in the spring. Social History Tobacco Use Types Packs/Day Years Used Date Smoking Tobacco: Unknown Tobacco Cessation:Counseling Given: Not Answered Comments No Sex and Gender Information Value Date Recorded Sex Assigned at Female 12/21/2021 11:58 PM EDT Legal Sex Female 11:58 PM EDT Gender Identity Not on file Sexual Orientation Not on file Last Filed Vital Signs Vital Sign Reading Time Taken Comments Blood Pressure - - Pulse - - Temperature - - Respiratory Rate - - Oxygen Saturation - - Inhaled Oxygen Concentration - - Weight 74.8 kg (164 lb 14.5 oz) 10/05/2023 1:43 PM EDT Height 155.5 cm (5' 1.22 ) 10/05/2023 1:43 PM ED T Body Mass Index 30.93 10/05/2023 1:43 PM EDT Plan of Treatment Not on file Insurance [facility] [place] [id number] Care Teams Napkin Band Wrapper Relationship Specialty Start Date End Date Shana Perry NP [address] [place] [address] PCP - General Nurse Practitioner 07/18/23
--- OUTSIDE RECORDS SUMMARY | 2024-06-25 15:41 | XMS_ITS | Encounter Summary ---
Author Organization [facility] Address [address] [place] [address] Care Team Providers Care Filter Screen Cleaner Name Role Phone YuriyleticiaShana NP Primary Care Provider [phone] Reason for Referral * Imaging (Routine) - Closed Specialty Diagnoses / Procedures Referred By Daniel schroeder Referred To Contact Radiology Procedures US Historical Reference Only Harjit Parrish MD [address] [place] [address] Phone: tel: fax: Referral ID Status Reason Start Date Expiration Date Visits Re quested Visits Authorized [id number] Closed 10/06/2023 04/06/2025 1 1 Encounter Details Date Type Department Care Team (Late st Contact Info) Description 10/06/2023 External Imaging [facility] [address] [place] [address] Yudelka Colby ARRT Social History Tobacco Use Types Packs/Day Years Used Date Smoking Tobacco: Unknown Comments No Sex and Gender Information Value Date Recorded Sex Assigned at Female 12/21/2021 11:58 PM EDT Legal Sex Female 11:58 PM EDT Gender Identity Not on file Sexual Orientation Not on file documented as of this encounter Plan of Treatment Pending Results Name Type Priority Associated Diagnoses Date /Time US Historical Reference Only Imaging Routine 10/06/2023 8:27 AM EDT documented as of this encounter Visit Diagnoses Not on filedocumented in this encounter Care Teams Filter Screen Cleaner Relationship Specialty Start Date End Date Shana Perry NP [address] [place] [address] PCP - General Nurse Practitioner 07/18/23 documented as of this encounter
--- OUTSIDE RECORDS SUMMARY | 2024-06-25 15:41 | XMS_ITS | Encounter Summary ---
Author Organization [facility] Address [address] [place] [address] Care Team Providers Care Product Safety Lead Name Role Phone Wanda Latham MD Primary Care Provider Unavailab [facility], Pcp Primary [facility] Encounter Details Date Type Department Care Team Description 12/09/2016 Telephone Pediatrics - [address] [address] Wanda Latham MD Social History Tobacco Use Types Packs/Day Years Used Date Smoking Tobacco: Passive Smo ke Exposure - Never Smoker Comments:dad and mom are smo kers Alcohol Use Standard Drinks/Week Comments Not Asked 0 (1 standard drink = 0.6 oz pur e alcohol) Sex Assigned at Date Recorded Not on file documented as of this encounter Miscellaneous Notes * Telephone Encounter - Lurdes MirandaPFerminNFermin - 12/10/2016 3:36 PM EDT 2nd msg left on ans machine to call Office & schedule an appt for weight check * Telephone Encounter - Cristiana Locke - 12/09/2016 11:42 AM EDT Left message to schedule * Telephone Encounter - Cristiana Locke - 12/09/2016 11:41 AM EDT Outgoing call: please call and schedule an appt to recheck weight/ height. ?? documented in this encounter Plan of Treatment Not on file documented as of this encounter Visit Diagnoses Not on filedocumented in this encounter Care Teams Product Safety Lead Relationship Specialty Start Date End Date Wanda Latham MD PCP - General Pediatrics 02/18/14 10/06/17 [facility], [facility]cp PCP - General Internal Medicine 10/07/17 documented as of this encounter
--- OUTSIDE RECORDS SUMMARY | 2024-06-25 15:41 | XMS_ITS | Encounter Summary ---
Author Organization [facility] Address [address] [place] [address] Care Team Providers Care Java Performance Engineer Name Role Phone Community, Pcp Primary Care Provider Unavailabl e Encounter Details Date Type Department Care Team Description 10/11/2017 Release of Information Medical Records [address] [place] [address] Abstract, Provider Social History Tobacco Use Types [...] on filedocumented in this encounter Care Teams Java Performance Engineer Relationship Specialty Start Date End Date Community, Pcp PCP - General Internal Medicine 10/07/17 documented as of this encounter
--- OUTSIDE RECORDS SUMMARY | 2024-06-25 15:42 | XMS_ITS | Encounter Summary ---
Author Organization [facility] Address [address] [place] [address] Care Team Providers Care English Tutor Name Role Phone Wanda Latham MD Primary Care Provider Unavailab [facility], Pcp Primary Care Provider Unavailabl e Reason for Visit * Reason Comments E-prescribe Rx Request Encounter Details Date Type Department Care Team Description 06/16/2015 Refill Pediatrics - [address] [address] Wanda Latham MD E-prescribe Rx Request Social History Tobacco Use Types Packs/Day Years Used Date Smoking Tobacco: Passive Smo ke Exposure - Never Smoker Comments:dad and mom are smo kers Alcohol Use Standard Drinks/Week Comments Not Asked 0 (1 standard drink = 0.6 oz pur e alcohol) Sex Assigned at Date Recorded Not on file documented as of this encounter Miscellaneous Notes * Telephone Encounter - Nell Saldanayoselinberna - 06/16/2015 9:53 AM EDT When was patients last PE/WCC? 03/20/2014 When is patients next PE/WCC scheduled? 09/05/2015 Wanda Latham RX REQUEST WHEN MED IS ON THE LIST: All of the medications requested were on the CURRENT MEDS list Did you check the Pharmacy information above?: YES Indicate how soon the patient needs the script: BY THE END OF THE DAY Patient would like script to be: E-PRESCRIBED/FAXED TO PHARMACY Is the doctor here today?: YES Can the message wait until the doctor returns?: NO Has the patient been told that the prescription will not be filled until the end of the day? YES Wanda Latham Payor: [email or web address] / Plan: [email or web address] $0 CHELLE [id number] / Product Type: MEDICAID [id number] documented in this encounter Plan of Treatment Not on file documented as of this encounter Visit Diagnoses Not on filedocumented in this encounter Care Teams English Tutor Relationship Specialty Start Date End Date Wanda Latham MD PCP - General Pediatrics 02/18/14 10/06/17 [facility] PCP - General Internal Medicine 10/07/17 documented as of this encounter
== END 2024-06-25 14:27 | disposition home or self-care (01) ==
LOC: HO.HCS 13:38
PROVIDERS: PCP Internal Medicine; Visit Provider Internal Medicine Cardiovascular Disease
DX: R60.0 Localized edema (principal)
CPT/HCPCS: 93010; 99204; G2211

== ENCOUNTER → 2024-07-24 10:44 | Outpatient (REF) | payer OTHER, SELFPAY ==
--- NOTE | 2024-07-24 10:52 | CA_ITS ---
Transthoracic Echocardiogram Patient (Last, First, Middle): Emma Conteh, Gender: Female Date of : 2005 Age: 18 Procedure Date: 07/24/2024 Procedure Type: Transthoracic Echocardiogram Location: OP Height: 154.94 cm Weight: 57.15 kg BSA: 1.55 m2 Heart Rate: 86 bpm BP: 110 / 70 mmHg Director Surface Transportation: TO/RC Referring MD: Huey Marquez MD Symptoms: R60.0 - Localized edema Study Quality: Adequate w contrast ECG Rhythm: Sinus Conclusions: - Essentially normal study Findings Procedure Information Contrast agent, definity, is being given per protocol without apparent complications. Left Ventricle Normal left ventricular size, thickness, and systolic function. The visually estimated ejection fraction is between 60-65%. Spectral Doppler is indicative of a normal filling pattern. Right Ventricle Normal right ventricular cavity size and systolic function. Atria Both atria are normal in size. There is no evidence of interatrial shunt. Aortic Valve Normal aortic valve structure and function. There is no aortic valve stenosis. There is no aortic valve regurgitation. Mitral Valve Normal mitral valve structure and function. There is trace mitral valve regurgitation. There is no mitral valve stenosis. Pulmonic Valve The pulmonic valve is likely normal. Tricuspid Valve Normal tricuspid valve structure. Tricuspid regurgitation envelope is inadequate for calculation of right ventricular systolic pressure. Normal right atrial pressure. Great Vessels All visible segments of the aorta are normal in size. The pulmonary artery was not well visualized. Venous The inferior vena cava is normal in size and collapses greater than 50% with inspiration. Pericardium/Pleural There is no evidence of pericardial effusion. Prior Study Comparison No prior study available for comparison. Measurements 2D Linear Measurements IVSd: 0.59 0.6-0.9/0.6-1.0 cm LVIDd: 4.05 3.9-5.3/4.2-5.9 cm LVIDd Index: 2.61 2.4-3.2/2.2-3.1 cm/m2 LVIDs: 2.90 2.0-3.6 cm LVPWd: 0.77 0.7-1.1 cm LV Mass: 95.95 67-162/88-224 g LV Mass Index: 61.90 43-95/49-115 g/m2 LVOT Diam: 2.00 3.0+(-)1.3 cm 2D Systolic Function EF 4C: 64.10 >55% EF 2C: 57.40 >55% EF BiP: 60.90 >55% Mitral Valve MV Pk E: 0.60 MV PK A: 0.59 MV Decel Time: 112.00 E/A: 1.00 E'Lateral: 12.80 E'Medial: 8.49 E/E' Med: 7.00 E/E' Lat: 4.70 PHT: 33.00 MVA PHT: 6.67 Decel [place]: 5.30 Aortic Valve AoV Pk Rodney: 1.17 AoV Mn Rodney: 0.86 AoV VTI: 0.23 AoV Pk Grad: 5.00 Aov Mn Grad: 3.00 CHELO Cont.VTI: 2.84 LVOT LVOT Pk Rodney: 1.17 LVOT Mn Rodney: 0.67 LVOT VTI: 0.21 LVOT Pk Grad: 5.00 LVOT Mn Grad: 2.00 LVOT Diam: 2.00 LVOT Area: 3.14 Diastolic Function MV Pk E: 0.60 MV Pk A: 0.59 E/A: 1.00 E'Medial: 8.49 E/E' Med: 7.00 E' Laterial: 12.80 E/E' Lat: 4.70 Right Ventricle TAPSE (mm): 22.30 TVS' Rodney: 12.00 Tricuspid Valve RA Press: 3.00 Great Vessels Aorta Sinus of Valsalva: 2.60 2.0-3.5 cm Ao Asc: 2.20 2.1-3.4 cm Updated in Other Vendor System with Status of Final Huey Marquez MD electronically signed on 07/25/2024 4:32:12 PM with status of Final
--- OUTSIDE RECORDS SUMMARY | 2024-07-24 12:07 | XMS_ITS | Clinical Summary ---
Author Organization [facility] Address [address] [id number] Care Team Providers Care Material Distributor Name Role Phone Shana Perry NP Primary Care Provider [phone] Allergies No known active allergies Medications cloNIDine [...] Will begin physical therapy and refer to [facility] for evaluation. Recheck in 2 weeks or sooner if needed. Discussed importance of healthy food choices and daily activity. Anxiety with depression 02/16/2022 Overview (10/05/2023): Last Assessment & Plan: Seeing psych. Was seen last month and has another visit in February. Juvenile idiopathic scoliosis of lumbar region 0 11/21/2017 Overview (10/05/2023): Scoliosis series films ordered. Pt will likely need referral to [facility] for further management. Last Assessment & Plan: Continue with follow up with [facility] for lower back scoliosis. Does not [...] Plan of Treatment Not on file Insurance [facility] Care Teams Material Distributor Relationship Specialty Start Date End Date Shana ePrry NP [address] [place] [address] PCP - General Nurse Practitioner 07/18/23
--- OUTSIDE RECORDS SUMMARY | 2024-07-24 12:07 | XMS_ITS | Encounter Summary ---
Author Organization [facility] Address [address] [place] [address] Care Team Providers Care Accounts Payable Lead Name Role Phone YuriyleticiaShana NP Primary Care Provider [phone] Reason for Referral * Imaging (Routine) - Closed Specialty Diagnoses / Procedures Referred By Daniel schroeder Referred To Contact Radiology Procedures US Historical Reference Only Harjit Parrish MD [address] [place] [address] Phone: tel: fax: Referral ID Status Reason Start Date Expiration Date Visits Re quested Visits Authorized [id number] Closed 10/06/2023 04/06/2025 1 1 Encounter Details Date Type Department Care Team (Late st Contact Info) Description 10/06/2023 External Imaging [facility] [address] [place] [address] Yudelka Colby ARRT Social History Tobacco Use [...] on filedocumented in this encounter Care Teams Accounts Payable Lead Relationship Specialty Start Date End Date Shana Perry NP [address] [place] [id number] PCP - General Nurse Practitioner 07/18/23 documented as of this encounter
== END ==
LOC: HO.CARD 10:44
PROVIDERS: PCP Internal Medicine; Visit Provider Internal Medicine Cardiovascular Disease
DX: R60.0 Localized edema (principal)
CPT/HCPCS: 93306; Q9957

== ENCOUNTER → 2024-07-24 10:52 | Outpatient (BNV) | payer OTHER, SELFPAY | PROVIDERS: PCP Internal Medicine; Visit Provider Internal Medicine Cardiovascular Disease | DX: I34.0 Nonrheumatic mitral (valve) insufficiency (principal) | CPT/HCPCS: 93306 ==

== ENCOUNTER 2024-08-08 13:43 | Outpatient (AMB) | payer OTHER, SELFPAY ==
--- NOTE | 2024-08-08 13:59 | MHC.OFFVIS ---
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 The patient denies any known history of cardiomyopathy, ischemic disease, or coronary artery disease. Patient was previously evaluated for lower leg edema in this office and has subsequently underwent a echo study as well as a BNP level check. Today, patient reports ongoing edema left greater than right. Patient denies any associated symptoms such as exertional chest pain, shortness of breath, palpitations, dizziness, orthopnea, PND, presyncope, or syncope. Patient notes that this edema has been present for almost a year and half and she has been evaluated by multiple providers with various imaging studies including ultrasound and x-ray with all negative findings for patient. Patient also notes that she has change in medications thinking it might has been side-effects from the previous once but denied any improvement. Patient also uses a wheeled walker due to history of scoliosis. [facility] Social History Patient Tobacco Use Status: Never used Tobacco Review of Systems ENT Reports dizziness Card Denies chest pain, Denies chest pain at rest, Denies chest pain with activity, Denies rapid heart rate, Denies pedal edema, Denies edema, Denies leg edema, Denies lightheadedness, Denies palpitations, Denies dyspnea, Denies dyspnea on exertion and Denies orthopnea Resp Denies cough, Denies dyspnea and Denies dyspnea on exertion GI Denies hematochezia and Denies change in stool character Musc Denies abnormal gait, Reports limited range of motion, Reports muscle cramps, Denies muscle weakness, Denies numbness, Denies radiating pain into limb, Denies stiffness and Denies tingling Neuro Denies abnormal gait, Reports dizziness, Denies numbness and Denies tingling Endo Denies palpitations Physical Exam Vital Signs: Last Vital Signs Pulse 67 08/08/24 14:00 BP 100/62 08/08/24 14:00 BMI result Body Mass Index 23.7 Const General: cooperative, healthy appearing, comfortable and no acute distress Orientation/consciousness: patient oriented x3 HEENT Head: Yes normal to inspection Neck Neck: Yes normal visual inspection, Yes trachea midline and Yes supple Chest Chest palpation & inspection: normal inspection of the chest Resp Effort & Inspection: normal respiratory effort Auscultation: clear to auscultation bilaterally, no crackles, no rales, no rhonchi and no wheezes Cardio Jugular venous distension: no JVD Palpation: normal PMI Rate: regular rate Rhythm: regular rhythm Heart sounds: S1 normal heart sound present, S2 normal heart sound present, no click, no gallops, no murmurs and no rubs Peripheral pulses: Peripheral pulses 2+ throughout GI Inspection: Yes normal to inspection Palpation (GI): Soft to palpation Auscultation: normal bowel sounds Skin General skin exam: no rashes or lesions noted Neuro General: patient oriented x3 Extrem Other: trace nonpitting edema General: Yes normal to inspection and No calf tenderness Psych Appearance: grossly normal Mental Status: mental status grossly normal Speech and movement: Normal speech and movement present Assessment & Plan Assessment & Plan (1) Leg edema: Code(s): R60.0 - Localized edema Category: Medical Plan: 07/24/2024-echo study showed a normal LV systolic function with an ejection fraction between 60-65% with no wall motion or valvular abnormalities. On exam today, patient has trace, nonpitting leg swelling more pronounced in the left leg than the right. The swelling is likely due to dependent edema from prolonged sitting and reduced muscle activity due to chronic use of wheeled walker. Recommended using compression socks and per request, we have prescribed compression socks and also provided a pair from the office. Also recommended engaging in regular leg exercises to improve muscle tone and as well as overall leg function. Blood pressure within normal limits. Follow up in the office on an as-needed basis. In the interim, patient will call the office with any concerns or change in symptoms. This note was generated using voice recognition software. 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 Medications: New comp.stocking,knee,long,medium As directed 12 ea 0RF Coding Level of Care Code Est Pt Level 3 (07054) Diagnoses Leg edema R60.0 Time Spent (min) 27 Comment Time spent in reviewing the chart, test results, assessment, counseling and documentation.
[2024-08-08 14:00] VITALS: BP 100/62; PULSE 67; BMI 23.7
--- OUTSIDE RECORDS SUMMARY | 2024-08-08 14:40 | XMS_ITS | Encounter Summary ---
Author Organization [facility] Address [address] [place] [address] Care Team Providers Care [employer] Name Role Phone YuriyleticiaShana NP Primary Care Provider [phone] Reason for Referral * Imaging (Routine) - Closed Specialty Diagnoses / Procedures Referred By Daniel schroeder Referred To Contact Radiology Procedures US Historical Reference Only Harjit Parrish MD [address] [place] [address] Phone: tel: fax: Referral ID Status Reason Start Date Expiration Date Visits Re quested Visits Authorized [id number] Closed 10/06/2023 04/06/2025 1 1 Encounter Details Date Type Department Care Team (Late st Contact Info) Description 10/06/2023 External Imaging [facility] [address] [place] [address] Yudelka Colby ARRT Social History Tobacco Use [...] on filedocumented in this encounter Care Teams [employer] Relationship Specialty Start Date End Date Shana Perry NP [address] [place] [id number] PCP - General Nurse Practitioner 07/18/23 documented as of this encounter
== END 2024-08-08 14:36 | disposition home or self-care (01) ==
LOC: HO.HCS 13:44
PROVIDERS: PCP Internal Medicine
DX: R60.0 Localized edema (principal)
CPT/HCPCS: 99213

== ENCOUNTER → 2024-08-08 13:43 | Outpatient (BNVA) | payer OTHER, SELFPAY | PROVIDERS: PCP Internal Medicine | DX: R60.0 Localized edema (principal) | CPT/HCPCS: 99212 ==